=== PATIENT | female | born 1995 | race Caucasian/White ===

== ENCOUNTER 2017-01-02 20:07 | Inpatient (IN) | payer OTHER ==
[2017-01-02 21:11] LABS: HCT 33.8 % (37.0-47.0); HGB 11.5 g/dl (12.5-16.0); MCH 31.4 pg (25.0-31.0); MCV 92.3 fL (78.0-100.0); MPV 10.4 fL (6.0-9.5); RBC 3.66 M/uL (4.20-5.40); RDW 13.5 % (11.5-14.0); WBC 17.7 K/uL (4.0-10.5)
[2017-01-02 21:12] LABS: BILIRUBIN NEGATIVE (NEGATIVE); BLOOD 1+ Ery/uL (NEGATIVE); CLARITY CLEAR (CLEAR); COLOR COLORLESS (YELLOW); GLUCOSE (U) NORMAL (NORMAL); KETONE (U) NEGATIVE (NEGATIVE); LEUKOCYTES 1+ Leu/uL (NEGATIVE); NITRITE NEGATIVE (NEGATIVE); PROTEIN NEGATIVE (NEGATIVE); SPECIFIC GRAVITY <=1.005 (1.001-1.030); UROBILINOGEN 0.2 mg/dL (0.2-1.0); pH 6.5 (5.0-9.0)
[2017-01-02 21:18] LABS: BACTERIA 1+
[2017-01-02 21:19] LABS: MUCOUS TRACE
[2017-01-02 21:25] LABS: AMPHETAMINES NEGATIVE (NEGATIVE); BARBITURATES NEGATIVE (NEGATIVE); BENZODIAZEPINES NEGATIVE (NEGATIVE); COCAINE NEGATIVE (NEGATIVE); MARIJUANA (THC) NEGATIVE (NEGATIVE); METHADONE NEGATIVE (NEGATIVE); TRICYCLIC ANTIDEPRESSANT NEGATIVE (NEGATIVE)
[2017-01-04 11:13] LABS: HGB 8.5 g/dl (12.5-16.0); MCH 31.7 pg (25.0-31.0); MCV 93.3 fL (78.0-100.0); MPV 9.7 fL (6.0-9.5); RBC 2.68 M/uL (4.20-5.40); RDW 13.4 % (11.5-14.0); WBC 22.9 K/uL (4.0-10.5)
[2017-01-05 11:29] LABS: HCT 24.5 % (37.0-47.0); HGB 8.2 g/dl (12.5-16.0); MCH 31.8 pg (25.0-31.0); MCHC 33.5 g/dL (32.0-36.0); MPV 9.8 fL (6.0-9.5); RBC 2.58 M/uL (4.20-5.40); RDW 13.7 % (11.5-14.0); WBC 19.1 K/uL (4.0-10.5)
== END 2017-01-05 21:15 | disposition home or self-care (01) | DRG 775 ==
LOC: FOB 20:07
PROVIDERS: Obstetrics & Gynecology; ADMIT Obstetrics & Gynecology
PROC: 3E0P7GC Introduction of Other Therapeutic Substance into Female Reproductive, Via Natural or Artificial Opening (ICD-10-PCS; principal; 2017-01-02)
PROC: 10E0XZZ Delivery of Products of Conception, External Approach (ICD-10-PCS; 2017-01-02)
PROC: 4A1HX4Z Monitoring of Products of Conception, Cardiac Electrical Activity, External Approach (ICD-10-PCS; 2017-01-02)
DX: O70.1 Second degree perineal laceration during delivery (principal); O26.03 Excessive weight gain in pregnancy, third trimester; Z3A.40 40 weeks gestation of pregnancy; Z37.0 Single live birth; Z87.891 Personal history of nicotine dependence; R12 Heartburn
CPT/HCPCS: 36415; 80305; 81001; J1756